=== PATIENT | male | born 1975 | race Caucasian/White ===

== ENCOUNTER → 2021-12-01 14:23 | Outpatient (CLI) | payer OTHER, SELFPAY ==
--- NOTE | ~2021-12-01 | MR_ITS ---
EXAMINATION: MR hip LT wo con DATE: 12/01/2021 15:24 INDICATION: Left hip pain. TECHNIQUE: Magnetic resonance imaging (MRI) of the left hip was performed without intravenous contras t. COMPARISON: Radiographs 11/10/2021 FINDINGS: Bones/cartilage: Bone alignment is normal. No fracture. The femoral head/neck morphologies are normal. The hip joints demonstrate tiny osteophytes. Small [id number] images of left hip demonstrate shallow partial-thic kness cartilage loss superolaterally and posteriorly. Labrum: There is degeneration of the left acetabular labrum without well-defined tear. Fluid: There is no hip joint effusion. There is mild bilateral trochanteric bursitis. Soft tissues: There are bilateral inguinal hernias containing fat. There is diverticulosis of the colon without minerva dence of diverticulitis. There is mild tendinopathy of the hamstring origins bilaterally. The iliopso as tendons are normal. The gluteus minimus and gluteus medius tendons are normal. IMPRESSION: 1. Mild osteoarthritis of the hips. 2. Bilateral inguinal hernias containing fat. Reviewed, dictated and finalized at location B.
== END ==
PROVIDERS: PCP Nurse Practitioner Family; Visit Provider Nurse Practitioner Family
DX: M16.12 Unilateral primary osteoarthritis, left hip (principal); K40.20 Bilateral inguinal hernia, without obstruction or gangrene, not specified as recurrent
CPT/HCPCS: 73721

== ENCOUNTER 2022-01-10 10:11 | Outpatient (CLI) | payer OTHER, SELFPAY ==
--- NOTE | ~2022-01-10 | XR_ITS ---
EXAMINATION: XR lg joint inject/asp w image DATE: 01/10/2022 11:15 INDICATION: Left hip arthritis TECHNIQUE: A time-out was performed to verify the patient's name, date of , and procedure to b e performed. The procedure including the risks, benefits, and alternatives was discussed with the pat ient. Risks discussed included bleeding and infection. The patient understood the risks and agreed to proceed. The skin overlying the left hip joint was prepped and draped in usual sterile fashion. An esthetic was administered with 1% lidocaine subcutaneously. A 22 G needle was advanced under fluoros copic guidance into the joint. Injection of a small amount of room air confirmed intra-articular pos ition of the needle. Subsequently, injectate consisting of 3 mL of a 2:1 mixture of 0.5% bupivacaine : 80 mg/mL Depo-Medrol for a total dosage of 80 mg Depo-Medrol was instilled. The needle was removed and the entry site was cleaned and dressed. There were no immediate complications. Fluoroscopy expos ure time was 0.1 minutes. The total number of images was 2. FINDINGS: Real-time fluoroscopy demonstrates the needle and injected gas in the left hip joint. Patie nt's pain prior to procedure:0/10. Patient's pain following the procedure: 0/10. IMPRESSION: 1. Successful left hip joint injection of local anesthetic and steroid. Reviewed, dictated and finalized at location A.
== END 2022-01-10 10:12 | disposition home or self-care (01) ==
PROVIDERS: Visit Provider Nurse Practitioner Family
DX: M16.12 Unilateral primary osteoarthritis, left hip (principal)
CPT/HCPCS: 20610; 77002; J1040; Q9966

== ENCOUNTER 2022-08-09 08:35 | Outpatient (CLI) | payer OTHER, SELFPAY ==
--- NOTE | ~2022-08-09 | MR_ITS ---
EXAMINATION: MR lumbar spine wo con DATE: 08/09/2022 09:05 INDICATION: Lumbar spine pain TECHNIQUE: Magnetic resonance imaging (MRI) of the lumbar spine was performed without intravenous con trast. Sequences included sagittal T2-weighted FSE, sagittal T2-weighted FS FSE, sagittal T1-weighted FSE, and axial T2-weighted FSE. COMPARISON: None FINDINGS: 7 degrees lumbar levocurvature. Sagittal alignment is normal. Minimal anterior wedging at T11. More c audal lumbar vertebral body heights are normal. Normal marrow signal. Moderate disc height loss at T 10-T11. Mild disc height loss at T11-T12 and T12-L1 and L5-S1. Annular fissures at L4-L5 and L5-S1. T he conus medullaris terminates at L1. There is normal signal in the caudal spinal cord. 4.0 cm T2 hyp erintense cyst at the lower pole of the left kidney. Paravertebral soft tissues are unremarkable. The following disc levels are specifically discussed: T12-L1: The disc does not extend beyond the endplate margin. There is mild bilateral facet joint oste oarthritis. There is no neural foraminal stenosis. There is no central canal stenosis. L1-L2: The disc does not extend beyond the endplate margin. There is mild to moderate bilateral facet joint osteoarthritis. There is no neural foraminal stenosis. There is no central canal stenosis. L2-L3: Disc is minimally bulging. There is mild bilateral facet joint osteoarthritis. There is mild b ilateral neural foraminal stenosis. There is no central canal stenosis. L3-L4: Disc is minimally bulging. There is mild to moderate bilateral facet joint osteoarthritis. The re is mild bilateral neural foraminal stenosis. There is no central canal stenosis. L4-L5: Small central disc protrusion. There is mild to moderate bilateral facet joint osteoarthritis. There is mild bilateral neural foraminal stenosis. There is mild central canal stenosis. L5-S1: Disc is mildly bulging with superimposed annular fissure and central to left paracentral disc extrusion with disc material extending couple millimeters caudal to the level of the superior endplat e of S1. There is mild to moderate bilateral facet joint osteoarthritis. There is minimal bilateral n eural foraminal stenosis. There is no central canal stenosis. IMPRESSION: 1. Mild lumbar spondylosis. Reviewed, dictated and finalized at location A. [employer] IMPRESSION: 1. Mild lumbar spondylosis.
== END 2022-08-09 08:36 | disposition home or self-care (01) ==
LOC: ANHIMG 08:36
PROVIDERS: Visit Provider Nurse Practitioner Family
DX: M47.896 Other spondylosis, lumbar region (principal)
CPT/HCPCS: 72148